=== PATIENT | male | born 1990 | race Hispanic/Latino ===

== ENCOUNTER 2019-08-11 13:11 | Emergency (ER) | payer BC, OTHER ==
[2019-08-11] MEDS ORDERED: HYDROCODONE/CHLORPHEN 5 ML/OSYR ONE (13:30)
--- NOTE | 2019-08-11 13:55 | RAD REPORT ---
EXAM DESCRIPTION: Edward Head And Alessio (2 Views)08/11/2019 1:34 pm CLINICAL HISTORY: Cough COMPARISON: None FINDINGS: The lungs appear clear of acute infiltrate. The heart is normal size IMPRESSION: No acute abnormalities displayed
--- NOTE | 2019-08-11 14:45 | ER ---
Nurse's Notes [facility] Name: Mitch Potter Age: 28 yrs Sex: Male : 1990 Arrival Date: 08/11/2019 Time: 13:13 Bed 13 Private MD: Amador Gunter Diagnosis: Cough Presentation: 08/11 13:20 Presenting complaint: Patient states: dry, hacking cough x 1 week. Pt was prescribed ss cough syrup with codeine to help suppress cough, but patient states it's getting worse and becoming very painful. Denies fever. Transition of care: patient was not received from another setting of care. Onset of symptoms was August 04, 2019. Risk Assessment: Do you want to hurt yourself or someone else? Patient reports no desire to harm self or others. Initial Sepsis Screen: Does the patient meet any 2 criteria? HR > 90 bpm. Does the patient have a suspected source of infection? No. Patient's initial sepsis screen is negative. Care prior to arrival: None. 13:20 Method Of Arrival: Ambulatory ss 13:20 Acuity: KYLE 4 ss Historical: - Allergies: 13:23 No Known Allergies; ss - PMHx: 13:23 None; ss - PSHx: 13:23 None; ss - Immunization history:: Adult Immunizations up to date. - Coronavirus screen:: The patient has NOT traveled to [place], [place], or [place] in the past 14 days. Proceed with normal triage process as indicated. - Social history:: Smoking status: Patient reports the use of cigarette tobacco products, denies chronic smoking, but will smoke occasionally. - Ebola Screening: : Patient denies exposure to infectious person Patient denies travel to an Ebola-affected area in the 21 days before illness onset. Screenin:15 Abuse screen: Denies threats or abuse. Nutritional screening: No deficits noted. rb1 Tuberculosis screening: No symptoms or risk factors identified. Fall Risk None identified. Assessment: 13:15 General: Appears in no apparent distress. comfortable, Behavior is calm, cooperative, rb1 Denies fever. Pain: Complains of pain in diaphragm Pain currently is 9 out of 10 on a pain scale. Pain began x 1 week. Neuro: Level of Consciousness is awake, alert, obeys commands, Oriented to person, place, time, situation. Cardiovascular: Capillary refill < 3 seconds is brisk in bilateral fingers. Respiratory: Reports cough that is dry, hacking, Airway is patent Respiratory effort is even, unlabored, Respiratory pattern is regular, symmetrical. GI: No signs and/or symptoms were reported involving the gastrointestinal system. : No signs and/or symptoms were reported regarding the genitourinary system. Derm: Skin is dry, Skin is normal, Skin temperature is warm. 13:39 Reassessment: Patient appears in no apparent distress at this time. Patient and/or rb1 family updated on plan of care and expected duration. Pain level reassessed. Patient is alert, oriented x 3, equal unlabored respirations, skin warm/dry/pink. 14:42 Reassessment: Patient appears in no apparent distress at this time. Patient and/or mg2 family updated on plan of care and expected duration. Pain level reassessed. Patient is alert, oriented x 3, equal unlabored respirations, skin warm/dry/pink. Vital Signs: 13:23 BP 154 / 83; Pulse 108; Resp 22; Temp 98.0(O); Pulse Ox 97% on R/A; Weight 113.4 kg; ss Height 5 ft. 7 in. (170.18 cm); Pain 9/10; 14:41 BP 116 / 99; Pulse 56; Resp 18; Pulse Ox 96% on R/A; mg2 13:23 Body Mass Index 39.16 (113.40 kg, 170.18 cm) ED Course: 13:13 Patient arrived in ED. ag5 13:13 Amador Gunter MD is Private Physician. ag5 13:15 Deanna Scott FNP-C is [facility]. kb 13:15 Leonardo Lopez MD is Attending Physician. kb 13:15 Patient has correct armband on for positive identification. Bed in low position. Call rb1 light in reach. Side rails up X 1. Pulse ox on. NIBP on. 13:22 Triage completed. ss 13:23 Arm band placed on right wrist. ss 13:32 Chest Pa And Lat (2 Views) XRAY In Process Unspecified. EDMS 13:39 Jelly Ortiz, RN is Primary Nurse. rb1 14:12 No provider procedures requiring assistance completed. Patient did not have IV access mg2 during this emergency room visit. Administered Medications: 13:39 Drug: Tussionex Pennkinetic ER 5 ml Route: PO; rb1 14:11 Follow up: Response: No adverse reaction mg2 Outcome: 14:44 Discharge ordered by MD. dior 14:52 Discharged to home ambulatory, with family. mg2 14:52 Condition: stable 14:52 Discharge instructions given to patient, family, Instructed on discharge instructions, follow up and referral plans. medication usage, Demonstrated understanding of instructions, follow-up care, medications, Prescriptions given X 1. 14:52 Patient left the ED. mg2 Signatures: Dispatcher [employer] EDMS Deanna Scott, SALES COORDINATOR-C SALES COORDINATOR-Randi Tafoya RN RN ss Jelly Ortiz RN RN rb1 Benjamin Maya RN RN mg2 Kellie Taylor ag5
--- NOTE | 2019-08-11 14:45 | EDPHYS ---
Physician Documentation [facility] Name: Mitch Potter Age: 28 yrs Sex: Male : 1990 Arrival Date: 08/11/2019 Time: 13:13 Bed 13 Private MD: Amador Gunter ED Physician Leonardo Lopez HPI: 08/11 14:40 This 28 yrs old Male presents to ER via Ambulatory with complaints of Cough, kb Rib Pain. 14:40 The patient or guardian reports cough, described as moderate, with no sputum. Onset: kb The symptoms/episode began/occurred 1.5 week(s) ago. Severity of symptoms: At their worst the symptoms were moderate, in the emergency department the symptoms are unchanged. Modifying factors: The symptoms are alleviated by nothing, the symptoms are aggravated by nothing. Associated signs and symptoms: Pertinent positives: chest pain, with cough, Pertinent negatives: diarrhea, ear ache, fever, nausea, rhinorrhea, sore throat, vomiting. The patient has not experienced similar symptoms in the past. The patient has not recently seen a physician. 14:41 Pt reports cough for 1.5 weeks. States it was productive at first, now dry. Called kb teledoc and was prescribed promethazine for cough. Comes in today because of lower chest pain with cough. Points at diaphram area when talking about pain. Historical: - Allergies: 13:23 No Known Allergies; ss - PMHx: 13:23 None; ss - PSHx: 13:23 None; ss - Immunization history:: Adult Immunizations up to date. - Coronavirus screen:: The patient has NOT traveled to [place], [place], or [place] in the past 14 days. Proceed with normal triage process as indicated. - Social history:: Smoking status: Patient reports the use of cigarette tobacco products, denies chronic smoking, but will smoke occasionally. - Ebola Screening: : Patient denies exposure to infectious person Patient denies travel to an Ebola-affected area in the 21 days before illness onset. ROS: 13:24 Constitutional: Negative for fever, chills, and weight loss, ENT: Negative for injury, kb pain, and discharge, Neck: Negative for injury, pain, and swelling, Abdomen/GI: Negative for abdominal pain, nausea, vomiting, diarrhea, and constipation, Back: Negative for injury and pain, MS/Extremity: Negative for injury and deformity, Skin: Negative for injury, rash, and discoloration, Neuro: Negative for headache, weakness, numbness, tingling, and seizure. 13:24 Cardiovascular: Positive for chest pain, with cough. 13:24 Respiratory: Positive for cough. Exam: 13:24 Constitutional: This is a well developed, well nourished patient who is awake, alert, kb and in no acute distress. Head/Face: Normocephalic, atraumatic. ENT: Nares patent. No nasal discharge, no septal abnormalities noted. Tympanic membranes are normal and external auditory canals are clear. Oropharynx with no redness, swelling, or masses, exudates, or evidence of obstruction, uvula midline. Mucous membranes moist. Neck: Trachea midline, no thyromegaly or masses palpated, and no cervical lymphadenopathy. Supple, full range of motion without nuchal rigidity, or vertebral point tenderness. No Meningismus. Cardiovascular: Regular rate and rhythm with a normal S1 and S2. No gallops, murmurs, or rubs. Normal PMI, no JVD. No pulse deficits. Respiratory: Lungs have equal breath sounds bilaterally, clear to auscultation and percussion. No rales, rhonchi or wheezes noted. No increased work of breathing, no retractions or nasal flaring. Abdomen/GI: Soft, non-tender, with normal bowel sounds. No distension or tympany. No guarding or rebound. No evidence of tenderness throughout. Back: No spinal tenderness. No costovertebral tenderness. Full range of motion. Skin: Warm, dry with normal turgor. Normal color with no rashes, no lesions, and no evidence of cellulitis. MS/ Extremity: Pulses equal, no cyanosis. Neurovascular intact. Full, normal range of motion. Neuro: Awake and alert, GCS 15, oriented to person, place, time, and situation. Cranial nerves II-XII grossly intact. Motor strength 5/5 in all extremities. Sensory grossly intact. Cerebellar exam normal. Normal gait. 13:24 Chest/axilla: Inspection: normal, Palpation: tenderness, that is moderate, of the diaphragm. Vital Signs: 13:23 BP 154 / 83; Pulse 108; Resp 22; Temp 98.0(O); Pulse Ox 97% on R/A; Weight 113.4 kg; ss Height 5 ft. 7 in. (170.18 cm); Pain 9/10; 14:41 BP 116 / 99; Pulse 56; Resp 18; Pulse Ox 96% on R/A; mg2 13:23 Body Mass Index 39.16 (113.40 kg, 170.18 cm) ss MDM: 13:15 Patient medically screened. kb 13:24 Data reviewed: vital signs, nurses notes. Data interpreted: Pulse oximetry: on room air kb is 97 %. Interpretation: normal. 14:40 Counseling: I had a detailed discussion with the patient and/or guardian regarding: the kb historical points, exam findings, and any diagnostic results supporting the discharge/admit diagnosis, radiology results, the need for outpatient follow up, a family practitioner, to return to the emergency department if symptoms worsen or persist or if there are any questions or concerns that arise at home. 08/11 13:18 Order name: Chest Pa And Lat (2 Views) XRAY; Complete Time: 13:58 kb Administered Medications: 13:39 Drug: Tussionex Pennkinetic ER 5 ml Route: PO; rb1 14:11 Follow up: Response: No adverse reaction mg2 Disposition: 21:28 Co-signature as Attending Physician, Leonardo Lopez MD I agree with the assessment and kdr plan of care. Disposition: 08/11/19 14:44 Discharged to Home. Impression: Cough. - Condition is Stable. - Discharge Instructions: Cough, Adult, [id number]. - Prescriptions for Tessalon Perles 100 mg Oral Capsule - take 1 capsule by ORAL route every 8 hours As needed; 15 capsule. - Medication Reconciliation Form, Thank You Letter, Antibiotic Education, Prescription Opioid Use form. - Follow up: Emergency Department; When: As needed; Reason: Worsening of condition. Follow up: Private Physician; When: 2 - 3 days; Reason: Recheck today's complaints, Continuance of care, Re-evaluation by your physician. Signatures: Dispatcher [employer] EDMN Deanna Scott, SMITH KAY-Leonardo Hare MD MD [facility] Randi Mccain RN RN ss Jelly Ortiz, RN RN rb1 Benjamin Maya RN RN mg2 Corrections: (The following items were deleted from the chart) 14:52 14:44 08/11/2019 14:44 Discharged to Home. Impression: Cough. Condition is Stable. mg2 Forms are Medication Reconciliation Form, Thank You Letter, Antibiotic Education, Prescription Opioid Use. Follow up: Emergency Department; When: As needed; Reason: Worsening of condition. Follow up: Private Physician; When: 2 - 3 days; Reason: Recheck today's complaints, Continuance of care, Re-evaluation by your physician. kb
[2019-08-11 14:59] VITALS: TEMP 98
[2019-08-11 15:01] VITALS: BP 116/99; O2SAT 96
== END 2019-08-11 14:52 | disposition home or self-care (01) ==
LOC: ER 13:11
DX: R05 Cough (principal)
CPT/HCPCS: 71046; 99284